=== PATIENT | female | born 1940 | race Caucasian/White ===

== ENCOUNTER 2016-09-23 21:45 | Emergency (ER) | payer MEDICARE, BC, OTHER ==
[~2016-09-23] VITALS: Ht 160 cm; Wt 59.1 kg
[2016-09-23 21:59] VITALS: BP 169/88; PULSE 92; RESP 20; TEMP 98.3; O2SAT 95
[2016-09-23] MEDS ORDERED: LORazepam 2 MG/ML VIAL IV PUSH ONE (22:15)
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
--- NOTE | 2016-09-23 22:51 | PD ---
Data Data Last Documented VS Vital Signs Date Time Temp Pulse Resp B/P Pulse Ox O2 Delivery O2 Flow Rate FiO2 09/24/16 03:02 100 Room Air 09/24/16 02:32 84 16 112/66 09/23/16 21:59 98.3 Orders Complete Blood Count With Diff (09/23/16 22:07) Comprehensive Metabolic Panel (09/23/16 22:07) Urinalysis - C+S If Indicated (09/23/16 22:07) Chest, Single Ap (09/23/16 22:07) Ct Brain W/O Iv Contrast(Rout) (09/23/16 22:07) Iv Access Insert/Monitor (09/23/16 22:07) Drug Screen, Random Urine (09/23/16 22:07) Alcohol (Ethanol) (09/23/16 22:07) Salicylates (Aspirin) (09/23/16 22:07) Tylenol (Acetaminophen) (09/23/16 22:07) Lorazepam Inj (Ativan Inj) (09/23/16 22:15) Psych Screen (09/24/16 03:52) Labs Laboratory Tests Test 09/23/16 22:30 White Blood Count 7.0 TH/MM3 Red Blood Count 4.84 MIL/MM3 Hemoglobin 14.2 GM/DL Hematocrit 43.2 % Mean Corpuscular Volume 89.3 FL Mean Corpuscular Hemoglobin 29.3 PG Mean Corpuscular Hemoglobin 32.8 % Concent Red Cell Distribution Width 13.6 % Platelet Count 177 TH/MM3 Mean Platelet Volume 8.8 FL Neutrophils (%) (Auto) 67.0 % Lymphocytes (%) (Auto) 20.4 % Monocytes (%) (Auto) 10.2 % Eosinophils (%) (Auto) 1.1 % Basophils (%) (Auto) 1.3 % Neutrophils # (Auto) 4.7 TH/MM3 Lymphocytes # (Auto) 1.4 TH/MM3 Monocytes # (Auto) 0.7 TH/MM3 Eosinophils # (Auto) 0.1 TH/MM3 Basophils # (Auto) 0.1 TH/MM3 CBC Comment DIFF FINAL Differential Comment Sodium Level 138 MEQ/L Potassium Level 3.6 MEQ/L Chloride Level 104 MEQ/L Carbon Dioxide Level 21.0 MEQ/L Anion Gap 13 MEQ/L Blood Urea Nitrogen 12 MG/DL Creatinine 0.60 MG/DL Estimat Glomerular Filtration 97 ML/MIN Rate Random Glucose 119 MG/DL Calcium Level 8.7 MG/DL Total Bilirubin 0.2 MG/DL Aspartate Amino Transf 17 U/L (AST/SGOT) Alanine Aminotransferase 20 U/L (ALT/SGPT) Alkaline Phosphatase 88 U/L Total Protein 7.1 GM/DL Albumin 3.5 GM/DL Salicylates Level 2.5 MG/DL Acetaminophen Level LESS THAN 2.0 MCG/ML Ethyl Alcohol Level 182 MG/DL [facility] Medical Record Reviewed: Yes Supervised Visit with JYOTHI: No Interpretation(s) Last Impressions Head CT 09/23/162206 Signed Impressions: Service Date/Time: Friday, September 23, 2016 22:49 - CONCLUSION: No acute intracranial abnormality. Atrophy and chronic white matter changes similar to before. oJnny Hernández MD Chest X-Ray 09/23/162206 Signed Impressions: Service Date/Time: Friday, September 23, 2016 23:20 - CONCLUSION: No acute cardiopulmonary disease demonstrated. Jonny Hernández MD Narrative Course During the course of the patients emergency department visit, the patients history, examination, and differential diagnosis were reviewed with the patient. The patient had IV access obtained and blood work sent for analysis. The patient was placed on a quality assurance monitor final with oximetry and blood pressure monitoring. The patient was initially evaluated by Phil. Please see his complete history and physical. The patient's case was checked out to me at the conclusion of his shift. Patient has been Taylor acted. The patient is in the process of being medically cleared. The patient was initially provided Ativan 1 mg IV. The patients laboratory studies were reviewed and remarkable for a white count of 7, hemoglobin 14.2, platelets 177 with monocytes 10.2, CMP is remarkable for a glucose of 119, alcohol level CLXXXII, acetaminophen less than 2, salicylate 2.5. Radiology studies were reviewed and remarkable for a CT scan of the brain shows no acute intracranial abnormality. Chest x-ray that shows no acute cardiopulmonary disease. The patient has been medically cleared for evaluation by the psychiatric screener under a Taylor act. Diagnosis Primary Impression: Agitation requiring sedation protocol Additional Impressions: Alcohol abuse Alcohol intoxication Qualified Code: F10.929 - Alcohol intoxication, with unspecified complication Scripts No Active Prescriptions or Reported Meds Gena Sylvester MD Sep 23, 2016 22:51
[2016-09-23 22:57] LABS: AUTOMATED NEUTROPHIL # 4.7 TH/MM3 (1.8-7.7); BASOPHIL # 0.1 TH/MM3 (0-0.2); BASOPHIL % 1.3 % (0.0-2.0); EOSINOPHIL # 0.1 TH/MM3 (0-0.4); EOSINOPHIL % 1.1 % (0.0-4.0); HEMATOCRIT 43.2 % (35.0-46.0); HEMO FLAGS DIFF FINAL; LYMPH % 20.4 % (9.0-44.0); LYMPHOCYTE # 1.4 TH/MM3 (1.0-4.8); MEAN CELL VOLUME 89.3 FL (80.0-100.0); MEAN CORPUSCULAR HEMOGLOBIN 29.3 PG (27.0-34.0); MEAN CORPUSCULAR HGB CONC 32.8 % (32.0-36.0); MONO % 10.2 % (0.0-8.0); PLATELET COUNT 177 TH/MM3 (150-450); RED BLOOD COUNT 4.84 MIL/MM3 (4.00-5.30); RED CELL DISTRIBUTION WIDTH 13.6 % (11.6-17.2)
[2016-09-23 23:03] LABS: ANION GAP 13 MEQ/L (5-15); AST (GOT) 17 U/L (15-37); BLOOD UREA NITROGEN 12 MG/DL (7-18); CHLORIDE 104 MEQ/L (98-107); GLOMERULAR FILTRATION RATE 97 ML/MIN (>89); POTASSIUM 3.6 MEQ/L (3.5-5.1); SODIUM (NA) 138 MEQ/L (136-145)
[2016-09-23 23:04] LABS: ACETAMINOPHEN LESS THAN 2.0 MCG/ML (10.0-30.0); ALT (GPT) 20 U/L (10-53)
[2016-09-23 23:06] LABS: ALKALINE PHOSPHATASE 88 U/L (45-117); TOTAL BILIRUBIN ADULT 0.2 MG/DL (0.2-1.0)
--- NOTE | 2016-09-23 23:09 | RADRPT ---
EXAM DATE/TIME: 09/23/2016 22:49 [facility] COMPARISON: CT BRAIN W/O CONTRAST, February 22, 2014, 23:33. INDICATIONS : Altered mental status. ETOH. RADIATION DOSE: 56.35 CTDIvol (mGy) MEDICAL HISTORY : None SURGICAL HISTORY : section. ENCOUNTER: Initial ACUITY: 1 day PAIN SCALE: 0/10 LOCATION: cranial TECHNIQUE: Multiple contiguous axial images were obtained of the head. Using automated exposure control and adj ustment of the mA and/or kV according to patient size, radiation dose was kept as low as reasonably a chievable to obtain optimal diagnostic quality images. FINDINGS: CEREBRUM: The ventricles are normal for age. No evidence of midline shift, mass lesion, hemorrhage or acute in farction. No extra-axial fluid collections are seen. Patchy and chronic low attenuation in the periv entricular white matter again noted. POSTERIOR FOSSA: The cerebellum and brainstem are intact. The 4th ventricle is midline. The cerebellopontine angle i s unremarkable. EXTRACRANIAL: The visualized portion of the orbits is intact. SKULL: The calvaria is intact. No evidence of skull fracture. CONCLUSION: No acute intracranial abnormality. Atrophy and chronic white matter changes similar to before. Jonny Hernández MD on September 23, 2016 at 23:07 Board Certified Radiologist. This report was verified electronically.
--- NOTE | 2016-09-24 00:01 | RADRPT ---
EXAM DATE/TIME: 09/23/2016 23:20 [facility] COMPARISON: CHEST SINGLE AP, February 22, 2014, 19:17. INDICATIONS : Short of breath. MEDICAL HISTORY : None. SURGICAL HISTORY : None. ENCOUNTER: Initial ACUITY: 1 day PAIN SCORE: Non-responsive. LOCATION: Bilateral chest FINDINGS: Mild, chronic interstitial opacities are seen of both lungs, mainly in the bases. No acute infiltrate demonstrated. No pleural effusion or pneumothorax. Heart size stable, within normal limits. Tortuous thoracic aorta again noted. 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 CONCLUSION: No acute cardiopulmonary disease demonstrated. Jonny Hernández MD on September 23, 2016 at 23:58 Board Certified Radiologist. This report was verified electronically.
[2016-09-24 02:32] VITALS: BP 112/66; PULSE 84; RESP 16; O2SAT 97
[2016-09-24 03:02] VITALS: O2SAT 100
[2016-09-24 08:05] VITALS: BP 184/85; PULSE 84; RESP 16; O2SAT 96
[2016-09-24 09:51] LABS: BLOOD, URINE NEG (NEG); COMMENT (UR) CULT NOT INDICATED; CULTURE IF INDICATED CULT NOT INDICATED; GLUCOSE,URINE NEG (NEG); KETONE, URINE NEG (NEG); MUCUS URINE FEW /lpf (OCC); NITRITE,URINE NEG (NEG); PH, URINE 5.5 (5.0-8.5); SQUAMOUS EPITHELIAL CELL URINE <1 /hpf (0-5); URINE COLOR YELLOW (YELLW/STRAW)
[2016-09-24 09:52] LABS: AMPHETAMINE, URINE NEG (NEG); BARBITURATES, URINE NEG (NEG); COCAINE, URINE NEG (NEG)
[2016-09-24 09:58] VITALS: BP 153/75; PULSE 79; RESP 16; O2SAT 96
--- NOTE | 2016-09-24 11:07 | PD ---
History of Present Illness Chief Complaint: Alcohol/Drug Intoxication Time Seen by Provider: 10:30 Travel History International Travel<30 Days: No Contact w/Intl Traveler<30days: No Known affected area: No Legal Status Legal Status: [place] Act Taylor Act Signed By: History of Present Illness: 76-year-old female who presented last evening making threats against herself and threats against others. She was Taylor acted by the [facility] emergency department physician. At this time, it is learned that her alcohol level was approximately 180. She is now denying any suicidal or homicidal ideation, plan or intent. She is denying any psychotic symptoms. Her cognition is intact. Her behavior is calm and cooperative. She would like to return to her home. She does deny having an alcohol problem, either last night or today. When confronted with her alcohol level last night, she continues to state she did not have a problem with alcohol. Therefore, this physician feels her insight and judgment are impaired. However, because her cognition is intact and she is not psychotic, she is competent to contract for safety. She is verbally kristopher for safety at this time. [facility] Past Medical History Medical History: Denies Significant Hx Menopausal: Yes Past Surgical History Section: Yes Psychiatric History Psychiatric History Hx Psychiatric Treatment: DENIED History of Inpatient Treatment: No Social History Hx Alcohol Use: Yes Hx Tobacco Use: No Hx Substance Use: No Substance Use Type: Alcohol Other Substances Used: NOT FORTHCOMING WITH INFORMATION Allergies-Medications (Allergen,Severity, Reaction): Coded Allergies: No Known Allergies (Unverified , 09/23/16) Reported Meds & Prescriptions Reported Meds & Active Scripts Active No Active Prescriptions or Reported Medications Review of Systems Except as stated in HPI: all other systems reviewed are Neg Exam Alert: Yes [place]: Person, Place, Date, Situation Mood: Calm Affect: Appropriate Speech: Clear Eye Contact: Normal Memory Intact: Immediate, Recent, Remote Insight/Judgement Adequate MDM Medical Decision Making Medical Record Reviewed: Yes Assessment/Plan Patient has 2 problems which include an adjustment disorder with mixed disturbance of emotion and conduct and a diagnosis of alcohol abuse. Apparently patient is unhappy with her living situation and expressed inappropriate comments of a suicidal and homicidal nature. However, she is also abusing alcohol and therefore unable to resolve her living situation. At this time, the patient does not qualify for a Taylor act and we are not a [place] act receiving facility. Patient is being discharged with recommendations for follow up at [facility]. She does not meet criteria for inpatient psychiatric hospitalization. Orders Complete Blood Count With Diff (09/23/16 22:07) Comprehensive Metabolic Panel (09/23/16 22:07) Urinalysis - C+S If Indicated (09/23/16 22:07) Chest, Single Ap (09/23/16 22:07) Ct Brain W/O Iv Contrast(Rout) (09/23/16 22:07) Iv Access Insert/Monitor (09/23/16 22:07) Drug Screen, Random Urine (09/23/16 22:07) Alcohol (Ethanol) (09/23/16 22:07) Salicylates (Aspirin) (09/23/16 22:07) Tylenol (Acetaminophen) (09/23/16 22:07) Lorazepam Inj (Ativan Inj) (09/23/16 22:15) Psych Screen (09/24/16 03:52) Results Vital Signs Date Time Temp Pulse Resp B/P Pulse Ox O2 Delivery O2 Flow Rate FiO2 09/24/16 09:58 79 16 153/75 96 Room Air 09/24/16 08:05 84 16 184/85 96 Room Air 09/24/16 03:02 100 Room Air 09/24/16 02:32 84 16 112/66 97 Room Air 09/23/16 21:59 98.3 92 20 169/88 95 Laboratory Tests Test 09/23/16 09/24/16 22:30 09:18 White Blood Count 7.0 Red Blood Count 4.84 Hemoglobin 14.2 Hematocrit 43.2 Mean Corpuscular Volume 89.3 Mean Corpuscular Hemoglobin 29.3 Mean Corpuscular Hemoglobin 32.8 Concent Red Cell Distribution Width 13.6 Platelet Count 177 Mean Platelet Volume 8.8 Neutrophils (%) (Auto) 67.0 Lymphocytes (%) (Auto) 20.4 Monocytes (%) (Auto) 10.2 Eosinophils (%) (Auto) 1.1 Basophils (%) (Auto) 1.3 Neutrophils # (Auto) 4.7 Lymphocytes # (Auto) 1.4 Monocytes # (Auto) 0.7 Eosinophils # (Auto) 0.1 Basophils # (Auto) 0.1 CBC Comment DIFF FINAL Differential Comment Sodium Level 138 Potassium Level 3.6 Chloride Level 104 Carbon Dioxide Level 21.0 Anion Gap 13 Blood Urea Nitrogen 12 Creatinine 0.60 Estimat Glomerular Filtration 97 Rate Random Glucose 119 Calcium Level 8.7 Total Bilirubin 0.2 Aspartate Amino Transf 17 (AST/SGOT) Alanine Aminotransferase 20 (ALT/SGPT) Alkaline Phosphatase 88 Total Protein 7.1 Albumin 3.5 Salicylates Level 2.5 Acetaminophen Level LESS THAN 2.0 Ethyl Alcohol Level 182 Urine Color YELLOW Urine Turbidity CLEAR Urine pH 5.5 Urine Specific Mcdavid 1.009 Urine Protein NEG Urine Glucose (UA) NEG Urine Ketones NEG Urine Occult Blood NEG Urine Nitrite NEG Urine Bilirubin NEG Urine Urobilinogen LESS THAN 2.0 Urine Leukocyte Esterase NEG Urine RBC LESS THAN 1 Urine WBC 1 Urine Squamous Epithelial <1 Cells Urine Mucus FEW Microscopic Urinalysis Comment CULT NOT INDICATED Urine Opiates Screen NEG Urine Barbiturates Screen NEG Urine Amphetamines Screen NEG Urine Benzodiazepines Screen NEG Urine Cocaine Screen NEG Urine Cannabinoids Screen NEG Diagnosis Primary Impression: Adjustment disorder with mixed disturbance of emotions and conduct Additional Impression: Alcohol abuse Prescriptions No Active Prescriptions or Reported Meds Problem Qualifiers Jae Gomes MD Sep 24, 2016 11:06
== END 2016-09-24 17:53 | disposition home or self-care (01) ==
LOC: NEPC 21:45
DX: F43.25 Adjustment disorder with mixed disturbance of emotions and conduct (principal); F10.129 Alcohol abuse with intoxication, unspecified; Y90.6 Blood alcohol level of 120-199 mg/100 ml
CPT/HCPCS: 70450; 71010; 80053; 80307; 81001; 85025; 96374; 99285; J2060